=== PATIENT | male | born 1955 | race Caucasian/White ===

== ENCOUNTER 2023-11-24 08:11 | Day surgery (SDC) | payer MEDICARE, BC ==
[~2023-11-24] VITALS: Ht 172.7 cm; Wt 114.3 kg
[~2023-11-24 08:11] MED LIST: ATOR80TA59 PO; DRON400T PO; LISI10TA22 PO; MIDAZOLAM INJ 2MG/2ML VIAL As Ordered ONE; PHENYLEPHRINE 10% OPHTH SOL 5ML OD PRN; TAFL1DRO2 OU; XARE20TA PO; fentaNYL 100 MCG/2 ML INJECTION As Ordered ONE
[2023-11-24] MEDS: OFLOXACIN 0.3 % (OCUFLOX) OPTH SOL 5ML OD ONE (09:00)
[2023-11-24] MEDS: LIDOCAINE 3.5 % 1ML OPHTH TOPICAL GEL OU ONE (09:00)
[2023-11-24] MEDS ORDERED: METO1TAB32 PO (09:15)
[2023-11-24] MEDS: TROPICAMIDE 1% OPHTH SOLN 15ML OD SCH (09:16)
[2023-11-24] MEDS: PHENYLEPHRINE 2.5% OPHTH SOL 2ML OD SCH (09:16)
[2023-11-24] MEDS: ATROPINE SULFATE 1% OPHTH SOLN 2ML BTL OD SCH (09:16)
[2023-11-24] MEDS: LIDOCAINE 1% SDV 5ML VIAL As Ordered ONE (10:18)
[2023-11-24] MEDS: BSS IRRIG/VANCO(10MG)/TOBRA(5MG)/EPINEPH(1:1000-0.5CC)500ML BAG-ORONLY As Ordered ONE (10:18)
[2023-11-24] MEDS: CEFUROXIME 1MG/0.1ML INTRACAMERAL INJ As Ordered ONE (10:26)
[2023-11-24 10:37] VITALS: BP 136/78; TEMP 97.9; O2SAT 94
== END 2023-11-24 10:55 | disposition home or self-care (01) ==
LOC: M SDC 08:11
PROVIDERS: ATTEND Ophthalmology
DX: H25.11 Age-related nuclear cataract, right eye (principal); H40.9 Unspecified glaucoma; I48.91 Unspecified atrial fibrillation; I10 Essential (primary) hypertension; E78.00 Pure hypercholesterolemia, unspecified; G47.30 Sleep apnea, unspecified; Z79.899 Other long term (current) drug therapy; F17.210 Nicotine dependence, cigarettes, uncomplicated; Z91.013 Allergy to seafood; Z88.8 Allergy status to other drugs, medicaments and biological substances
CPT/HCPCS: 66991; C1783; J0697; J2250; J3010; V2632

== ENCOUNTER 2023-12-01 06:06 | Day surgery (SDC) | payer MEDICARE, BC ==
[~2023-12-01] VITALS: Ht 172.7 cm; Wt 115.7 kg
[~2023-12-01 06:06] MED LIST changes: +ATROPINE SULFATE 1% OPHTH SOLN 2ML BTL OS SCH; +METO1TAB32 PO; -MIDAZOLAM INJ 2MG/2ML VIAL As Ordered ONE; -PHENYLEPHRINE 10% OPHTH SOL 5ML OD PRN; -fentaNYL 100 MCG/2 ML INJECTION As Ordered ONE
[2023-12-01] MEDS: LIDOCAINE 3.5 % 1ML OPHTH TOPICAL GEL OU ONE (07:00)
[2023-12-01] MEDS: OFLOXACIN 0.3 % (OCUFLOX) OPTH SOL 5ML OS ONE (07:00)
[2023-12-01] MEDS ORDERED: MIDAZOLAM INJ 2MG/2ML VIAL As Ordered ONE (07:20)
[2023-12-01] MEDS ORDERED: fentaNYL 100 MCG/2 ML INJECTION As Ordered ONE (07:21)
[2023-12-01] MEDS: BSS IRRIG/VANCO(10MG)/TOBRA(5MG)/EPINEPH(1:1000-0.5CC)500ML BAG-ORONLY As Ordered ONE (07:59)
[2023-12-01] MEDS: CEFUROXIME 1MG/0.1ML INTRACAMERAL INJ As Ordered ONE (07:59)
[2023-12-01] MEDS: LIDOCAINE 1% SDV 5ML VIAL As Ordered ONE (07:59)
[2023-12-01 08:10] VITALS: BP 117/57; TEMP 98.3; O2SAT 95
[2023-12-01] MEDS: PHENYLEPHRINE 10% OPHTH SOL 5ML OS PRN (08:13)
[2023-12-01] MEDS: PHENYLEPHRINE 2.5% OPHTH SOL 2ML OS SCH (08:13)
[2023-12-01] MEDS: TROPICAMIDE 1% OPHTH SOLN 15ML OS SCH (08:13)
== END 2023-12-01 08:20 | disposition home or self-care (01) ==
LOC: M SDC 06:06
PROVIDERS: ATTEND Ophthalmology
DX: H25.12 Age-related nuclear cataract, left eye (principal); I48.91 Unspecified atrial fibrillation; Z98.890 Other specified postprocedural states; G47.30 Sleep apnea, unspecified; Z88.8 Allergy status to other drugs, medicaments and biological substances; Z79.899 Other long term (current) drug therapy; Z79.01 Long term (current) use of anticoagulants; F17.210 Nicotine dependence, cigarettes, uncomplicated
CPT/HCPCS: 66984; J0697; J2250; J3010; V2632